=== PATIENT | male | born 1985 | race Caucasian/White ===

== ENCOUNTER 2018-12-09 17:33 | Emergency (ER) | payer OTHER ==
[~2018-12-09] VITALS: Ht 180.3 cm; Wt 68.0 kg
[2018-12-09 19:01] LABS: Urine Amorphous Crystal FEW /hpf (None Seen); Urine Bacteria FEW /hpf (None Seen); Urine Blood Negative /uL (Negative); Urine Specific Gravity 1.007 (1.001-1.035); Urine WBC <1 /hpf (0 - 3)
[2018-12-09 19:55] LABS: Basophils # (auto) 0 uL; Basophils % (auto) 0.4 % (0.0-2.0); Eosinophils # (auto) 0 uL; Hemoglobin 14.6 g/dL (13.5-17.5); Lymphocytes # (auto) 1.4 uL; Lymphocytes % (auto) 23.4 % (10.0-50.0); Mean Corpuscular Hemoglobin 32.4 pg (28.0-32.0); Mean Corpuscular Hgb Conc. 33.9 g/dL (32.0-36.0); Mean Corpuscular Volume 95.6 fL (80.0-100.0); Monocytes # (auto) 0.7 uL; Monocytes % (auto) 12.2 % (0.0-12.0); Neutrophils # (auto) 3.7 uL; Platelet Count (auto) 352 10^3/uL (140-450); Red Blood Cells 4.49 10^6/uL (4.5-5.90); Red Cell Distribution Width 12.7 % (11.8-14.3); White Blood Cell 5.8 10^3/uL (4.4-10.8)
[2018-12-09 20:14] LABS: Alanine Aminotransferase 24 U/L (16-61); Albumin 4.5 g/dL (3.4-5.0); Anion Gap 7 (5-15); Aspartate Aminotransferase 15 U/L (15-37); BUN/Creatinine Ratio 21.8; Blood Urea Nitrogen 17 mg/dL (7-18); Calcium 8.9 mg/dL (8.5-10.1); Carbon Dioxide 27 mmol/L (21-32); Chloride 105 mmol/L (98-107); GFR African American > 60 mL/min; GFR Non-African American > 60 mL/min; Glucose 104 mg/dL (74-106); Sodium 139 mmol/L (136-145)
[2018-12-09 20:16] LABS: Alkaline Phosphatase 43 U/L (45-117); Bilirubin, Total 0.4 mg/dL (0.2-1.0); Total Protein 7.9 g/dL (6.4-8.2)
[2018-12-09] MEDS ORDERED: ONDANSETRON ODT 4 MG TAB PO ONE (23:54)
[2018-12-10] MEDS ORDERED: ONDANSETRON ODT 4 MG TAB PO ONE
[2018-12-10] MEDS ORDERED: ONDANSETRON HCL 4 MG/2 ML VIAL ONE (00:03)
[2018-12-10] MEDS ORDERED: SODIUM CHLORIDE 0.9% 1,000 ML IV ONE (00:15)
[2018-12-10] MEDS ORDERED: ONDANSETRON HCL 4 MG/2 ML VIAL IV ONE ×2 (00:15→03:30)
[2018-12-10] MEDS ORDERED: PROMETHAZINE HCL 25 MG/ML 1ML ONE (00:43)
[2018-12-10] MEDS ORDERED: PROMETHAZINE HCL 25 MG/ML 1ML IV ONE (00:45)
[2018-12-10 02:51] LABS: Alcohol, Urine < 3.0 mg/dL (0-5); Barbiturate Scree,Urine NEGATIVE (NEGATIVE); Benzodiazephine Screen, Urine NEGATIVE (NEGATIVE); Cannabinoid Screen, Urine NEGATIVE (NEGATIVE); Cocaine Screen, Urine NEGATIVE (NEGATIVE); Opiate Scree,Urine NEGATIVE (NEGATIVE); Phencyclidine Screen, Urine NEGATIVE (NEGATIVE)
[2018-12-10 02:59] LABS: Amphetamine Screen, Urine NEGATIVE (NEGATIVE)
[2018-12-10] MEDS ORDERED: MORPHINE SULFATE 10 MG/ML INJ 1ML SDV IV ONE (03:30)
[2018-12-10 04:23] VITALS: BP 119/65
== END 2018-12-10 04:28 | disposition home or self-care (01) ==
LOC: ER 17:36
DX: K52.9 Noninfective gastroenteritis and colitis, unspecified (principal); K44.9 Diaphragmatic hernia without obstruction or gangrene; K59.00 Constipation, unspecified; F17.210 Nicotine dependence, cigarettes, uncomplicated; F12.10 Cannabis abuse, uncomplicated; F15.10 Other stimulant abuse, uncomplicated; F11.10 Opioid abuse, uncomplicated
CPT/HCPCS: 36415; 74176; 80053; 80307; 81001; 83690; 85025; 96361; 96374; 96375; 96376; 99284; J2270; J2405; J2550; J7030; Q0162

== ENCOUNTER 2022-01-13 13:27 | Emergency (ER) | payer OTHER ==
[~2022-01-13] VITALS: Ht 180.3 cm; Wt 74.8 kg
[2022-01-13 16:27] VITALS: BP 138/90
[2022-01-13] MEDS ORDERED: KETOROLAC TROMETH 60MG/2ML VIAL IM ONE (16:45)
[2022-01-13] MEDS ORDERED: cefTRIAXone SOD 1,000 MG VL IM ONE (16:45)
[2022-01-13] MEDS ORDERED: LIDOCAINE 1% HCL (LOCAL ANESTH.) INJ 20ML MDV ONE (16:50)
[2022-01-13] MEDS ORDERED: SULF800T7 PO (16:53)
[2022-01-13] MEDS ORDERED: IBUP800T27 PO (16:53)
[2022-01-13] MEDS ORDERED: CYCL-837 PO (16:53)
== END 2022-01-13 17:11 | disposition home or self-care (01) ==
LOC: ER 13:27
DX: L02.413 Cutaneous abscess of right upper limb (principal); F17.210 Nicotine dependence, cigarettes, uncomplicated
CPT/HCPCS: 10060; 96372; 99284; J0696; J1885; J2001

== ENCOUNTER 2022-01-16 18:54 | Emergency (ER) | payer OTHER ==
[~2022-01-16] VITALS: Ht 180.3 cm; Wt 74.8 kg
[~2022-01-16 18:54] MED LIST: CYCL-837 PO; IBUP800T27 PO; SULF800T7 PO
[2022-01-16 18:59] VITALS: BP 144/65
== END 2022-01-16 19:33 | disposition home or self-care (01) ==
LOC: ER 18:55
DX: L02.413 Cutaneous abscess of right upper limb (principal); F17.210 Nicotine dependence, cigarettes, uncomplicated; Z79.1 Long term (current) use of non-steroidal anti-inflammatories (NSAID); Z79.899 Other long term (current) drug therapy